=== PATIENT | male | born 1955 | race Caucasian/White ===

== ENCOUNTER 2019-12-13 10:50 | Day surgery (SDC) | payer MEDICARE ==
[~2019-12-13] VITALS: Ht 172.7 cm; Wt 100.7 kg
[2019-12-13 11:20] LABS: BASOPHILS 0.4 % (0-2); EOSINOPHILS 1.8 % (0-7); HEMATOCRIT 31.2 % (42.0-54.0); HEMOGLOBIN 10.6 g/dL (13.5-17.5); IMMATURE GRANULOCYTES 0.2 % (0-5); MCH 33.1 pg (26.0-34.0); MCV 97.5 fL (80.0-100.0); MONOCYTES 5.9 % (2-11); NEUTROPHILS 78.7 % (40-80); PLATELET COUNT 243 10x3/uL (130-400); RDW 12.2 % (11.5-14.5); WBC 8.9 10x3/uL (4.8-10.8)
[2019-12-13 11:31] LABS: ANION GAP 14.9 mmol/L (8-16); CALCIUM 8.4 mg/dL (8.5-10.1); CARBON DIOXIDE 27.8 mmol/L (21.0-32.0); CREATININE - SERUM 10.7 mg/dL (0.6-1.3); POTASSIUM - SERUM 3.7 mmol/L (3.5-5.1)
[2019-12-13 11:47] LABS: INR 1.02 (0.85-1.17); PROTIME 13.3 SECONDS (11.6-15.0)
[2019-12-13] MEDS ORDERED: COREG25 MG PO (12:07)
[2019-12-13] MEDS ORDERED: LASIX80 MG PO (12:07)
[2019-12-13] MEDS ORDERED: TESSALON PERLE100 MG PO (12:08)
[2019-12-13] MEDS ORDERED: RENAGEL800 MG PO (12:08)
[2019-12-13] MEDS ORDERED: CELEXA10 MG PO (12:08)
[2019-12-13] MEDS ORDERED: LANTUS INS100 UNITS/ SC (12:09)
[2019-12-13] MEDS ORDERED: CITRACAL + D E1 EACH PO (12:11)
[2019-12-13] MEDS ORDERED: HUMULIN R100 UNIT/1 SC (12:11)
[2019-12-13 12:20] VITALS: BMI 33.8
--- NOTE | 2019-12-13 16:57 | NUR ---
PATIENT STATES 7.10 PAIN. GAVE BUPRENEX PER MAR. PATIENT SLEEPY. PATIENT DOES DOSE OFF AFTER ASKING PAIN LEVEL. NO SUPPLEMENTAL OXYGEN AT THIS TIME. WILL CONTINUE TO MONITOR PATEINT.
--- NOTE | 2019-12-13 17:07 | NUR ---
PATIENT STATES BUPRENEX HELPED A LITTLE BIT. MUST BE WOKEN UP TO ANSWER QUESTIONS BECAUSE PATIENT DOSES OFF AND GOES TO SLEEP.
[2019-12-13 17:15] VITALS: Ht 172.7 cm; Wt 100.7 kg
--- NOTE | 2019-12-13 18:15 | NUR ---
1815 TRAMADOL 50MG PO GIVEN FOR HEMOSPLIT DISCOMFORT RATED 6/10, HOB ELEVATED AND ICE CAP TO NECK, BRUISING IS NOTED.
--- NOTE | 2019-12-13 19:34 | NUR ---
193 REPORT PHONED TO [facility] TO 2103 BY CHAZ
[2019-12-13 20:00] VITALS: BP 181/83
[2019-12-13] MEDS ORDERED: FUROSEMIDE10 MG/M1 (20:05)
[2019-12-14] VITALS: BP 138/69
--- NOTE | 2019-12-14 03:38 | NUR ---
ARRIVED TO FLOOR ON STRETCHER. REPORT CALLED BY CELESTE BERNSTEIN IN OUTPATIENT. ALERT AND ORIENTED X4. BEDFAST AT THIS TIME D/T ANESTHESIA. SLING TRO LT ARM. REQUESTED SOMETHING TOO EAT. SANDWICH BOX GIVEN. BECAME NAUSEATED. PHENAGREN GIVEN PER ORDERS. STATED RE;IEF. RAMONA GRISSOM NOTIFIED OF TRANSFER.
[2019-12-14 04:00] VITALS: BP 120/64
[2019-12-14 06:28] LABS: ANION GAP 15.9 mmol/L (8-16); CALCIUM 8.1 mg/dL (8.5-10.1); CARBON DIOXIDE 26.2 mmol/L (21.0-32.0); CREATININE - SERUM 11.1 mg/dL (0.6-1.3); POTASSIUM - SERUM 4.1 mmol/L (3.5-5.1)
[2019-12-14 08:01] LABS: BASOPHILS 0.7 % (0-2); EOSINOPHILS 1.4 % (0-7); HEMATOCRIT 30.9 % (42.0-54.0); HEMOGLOBIN 10.2 g/dL (13.5-17.5); IMMATURE GRANULOCYTES 0.4 % (0-5); LYMPHOCYTES 12.9 % (15-50); MCH 32.7 pg (26.0-34.0); MEAN PLATELET VOLUME 11.1 fL (7.4-10.4); MONOCYTES 7.7 % (2-11); NEUTROPHILS 76.9 % (40-80); PLATELET COUNT 248 10x3/uL (130-400); RBC 3.12 10x6/uL (4.20-6.10); RDW 12.2 % (11.5-14.5); WBC 8.5 10x3/uL (4.8-10.8)
[2019-12-14 08:08] VITALS: BP 123/71
--- NOTE | 2019-12-14 08:35 | MORECARE ---
CASE MANAGEMENT DISCHARGE SUMMARY PATIENT: KRYSTINA VALDES UNIT: [id number] ADM DATE: 12/13/19 AGE: 64 : 55 SEX: M ROOM/BED: D.2104 AUTHOR: VERO SOSA PHYSICIAN: REFERRING PHYSICIAN: LAXMI DIANA MD DATE OF SERVICE: 12/14/19 Discharge Plan Patient Name: KRYSTINA VALDES [facility] [facility] 1955 Planned Disposition: Home Anticipated Discharge Date: Discharge Date: Expected LOS: 0 Initial Reviewer: [email or web address] Initial Review Date: 12/14/2019 Generated: 12/14/19 9:34 am DCP- Discharge Planning Updated by [email or web address]: Chika Watson on 12/14/19 7:[address] DC order noted. I visited with patient and he states he has an OP chair at [facility] here in [place] on [address] at 0600. He is having dialysis today, then discharging home post dialysis. I have informed Shahnaz Parry, dialysis coordinator. Patient Name: KRYSTINA VALDES Page [id number] at 0835 All edits/amendments must be made on the electronic document DICTATION DATE: 12/14/19833 JUNIOR PARALEGAL: FREYA 12/14/19833 RPT#: [id number] DC DATE: STATUS: REG [facility] [address] [place] [address] END OF REPORT
--- NOTE | 2019-12-14 13:23 | NUR ---
PATIENT BACK FROM DIALYSIS. TRIALYSIS CATH INTACT. DRESSING CHANGED BY DIALYSIS NURSE. SITTING UP IN BED EATING AT THIS TIME. IV INTACT. CALL LIGHT WITHIN REACH. WAITING FOR DC TRANSPORTATIONS TO BE HERE.
--- NOTE | 2019-12-14 14:47 | OP ---
PATIENT NAME: KRYSTINA VALDES MEDICAL RECORD: [id number] :55 LOCATION:D.M2 D.2104 ADMISSION DATE: SURGEON: SOPHIA GUAN MD DATE OF OPERATION: 12/13/2019 PREOPERATIVE DIAGNOSIS: End-stage renal disease and dependence on dialysis and complication of peritoneal dialysis - failure to thrive. POSTOPERATIVE DIAGNOSIS: End-stage renal disease and dependence on dialysis and complication of peritoneal dialysis - failure to thrive. OPERATION PERFORMED: 1. Creation of a Jelena-type brachiocephalic AV fistula in the left upper extremity. 2. Insertion of a 23 cm tunneled HemoSplit dialysis catheter via the right internal jugular vein using real-time ultrasound guidance with image documentation as well as fluoroscopy. 3. Removal of peritoneal dialysis catheter. SURGEON: Sophia Guan MD ANESTHESIA: General per LMA by [employer] WORKER in addition to regional nerve block of the left upper extremity. REFERRING PHYSICIAN: David Diana MD PREOPERATIVE NOTE: This 64-year-old white male patient who has been on peritoneal dialysis for over a year, but is not doing well with that now and has been advised to change now to hemodialysis. He does not have a hemodialysis access. He is here today for me to remove his peritoneal dialysis catheter and also to create a new fistula in the left upper extremity and to place a tunneled dialysis catheter. DESCRIPTION OF PROCEDURE: After nerve block was administered and the patient was placed on the operating table in supine position and administered general anesthesia, the arm was prepped and draped in a sterile manner. I examined the arm with the use of Mat drain as a proximal venous tourniquet and then performed an ultrasound exam and noted that there was an excellent medial cubital vein and cephalic vein in the arm. There was a basilic vein, which could have been used as well, but the cephalic vein was larger. I made a transverse antecubital incision and exposed the median cubital vein draining to the cephalic and the brachial artery. The brachial artery was controlled with Silastic loops and the vein was treated with topical papaverine. Branches were ligated between ligatures of 3-0 Vicryl and Hemoclips. The vein was transected and beveled. It was then flushed with heparinized saline and hydrostatically distended after which an atraumatic vascular clamp was applied proximally. The artery was occluded with the Silastic loops and an arteriotomy was made just proximal to the bifurcation of the artery. The artery was flushed with heparinized saline and an end-to-side that is end-of-vein to [id number] anastomosis was completed with a running 7-0 Prolene. When completed, the suture line was hemostatic and there was excellent flow in the new fistula with a palpable thrill. Handheld continuous wave Doppler examination demonstrated excellent high resistance flow signals in the brachial artery distal to the anastomosis and at the wrist and the ulnar artery there was continuous pulsatile flow in the proximal brachial artery and continuous pulsatile flow in the new OPERATIVE REPORT [id number] KRYSTINA VALDES fistula. The wound was irrigated with saline and then closed with interrupted inverted 3-0 Vicryl and running intracuticular 4-0 Stratafix and Dermabond glue. It was dressed with Maxorb Ag, Tegaderm and Cavilon skin prep. The patient was then completely reprepped and draped. I examined the base of the neck with ultrasound and identified a normal right internal jugular vein, which was fully compressible and collapsible and of normal caliber. There was no filling defect, no visible clot or other abnormality. Otherwise, it was sonographically normal. I made a small incision over the base of the neck directly over the internal jugular vein and then with real time continuous ultrasound guidance, placed a micropuncture needle and wire into the internal jugular vein. Catheter and wire exchange was performed. Then, under fluoroscopy, I advanced dilators over the 0.038 wire and the lastly a peel-away dilator sheath was inserted. I chose a 23-cm Hemostats split and brought it from an a small incision beneath the clavicle up to the neck and then inserted it through the peel-away sheath. When completed, the catheter reached nearly to the inferior vena cava appeared to have excellent configuration and positioning and there were no kinks. The catheter was accessed and aspirated, free return of blood from each lumen was confirmed. They were then both flushed with saline and then heparin locked, clamped and capped. The catheter was sutured to the skin near the entry site beneath the clavicle with 2-0 Prolene. The cervical incision was closed with interrupted inverted 3-0 Vicryl and Dermabond glue and a dressing of Tegaderm, Maxorb Ag and Cavilon was applied. A standard CVL dressing was applied to the catheter at the exit site. The abdomen was then exposed and a transverse incision was made directly over the palpable peritoneal dialysis catheter below and to the right of the umbilicus. The catheter was exposed with sharp and electrocautery dissection. The superficial cuff was freed from the surrounding subcutaneous tissues. The deeper cuff was then exposed and freed and the catheter removed. It was discarded and there were no specimens. The fascial defect in the anterior rectus sheath was closed with a single [id number] #1 Vicryl. The wound was irrigated with Ancef and gentamicin solution and then closed with interrupted inverted 3-0 Vicryl and running intracuticular 4-0 Stratafix and Dermabond glue. It was dressed with Maxorb Ag, Tegaderm, and Cavilon skin prep. A little Betadine ointment and a dressing was applied over the previous PD catheter exit site. The patient was at this point awakened and taken to the recovery room in stable condition. Blood loss during the operation was probably no more than 10 mL. Sponges, instruments, and needles were accounted for. No drain was used and no surgical specimen was submitted for histopathology. PLAN: The patient will continue his same medications and diet. He is given a prescription for [place] 7/325 twenty of these, he can take 1 p.o. every 4 hours p.r.n. for pain. He will resume his diabetic renal diet as tolerated and he is to resume activities as tolerated. He will go to dialysis as scheduled. He has not yet had his first hemodialysis session that maybe tomorrow or the next day. I will plan to see him back in my office next week. Expect the fistula to mature in 6 to 8 weeks, it was really a very nice one. TRANSINT:[id number] Voice Confirmation ID: [id number] DOCUMENT ID: [id number] OPERATIVE REPORT [id number] KRYSTINA VALDES, SOPHIA JOHNSON at 1447 CC: DAVID DIANA [id number] DICTATION DATE: 12/13/191652 CREAM BEATER: 12/14/19334 [facility] [address] [place] [address]
--- NOTE | 2019-12-14 19:30 | NUR ---
REPORT RECIEVED AND ROUNDING COMPLETE. PATIENT LAYING IN BED EYES CLOSED BREATHING EVEN AND UNLABORED. EASILY AROUSED BY TALKING. NO NEEDS VOICED, NO DISTRESS NOTED. PATIENT STATES HE IS JUST TIRED. CALL LIGHT WITHIN REACH AND BED IN LOWEST LOCKED POSITION.
[2019-12-14 20:00] VITALS: BP 132/70
[2019-12-15 00:04] VITALS: BP 113/67
[2019-12-15 04:00] VITALS: BP 130/58
[2019-12-15 07:02] VITALS: BP 139/80
[2019-12-15] MEDS ORDERED: NORCO 7.5-3251 EACH PO (09:07)
== END 2019-12-15 11:20 | disposition home or self-care (01) ==
LOC: D.M2 10:50 → D.OPS 10:50 → D.M2 19:35 → D.OPS 12-15 11:20
PROVIDERS: Surgery; ATTEND Internal Medicine Nephrology
DX: N18.6 End stage renal disease (principal); Z99.2 Dependence on renal dialysis; T85.691S Other mechanical complication of intraperitoneal dialysis catheter, sequela